=== PATIENT | female | born 1930 | race Caucasian/White ===

== ENCOUNTER 2017-06-01 13:06 | Emergency (ER) | payer BC ==
[2017-06-01 13:27] VITALS: BP 148/75
--- NOTE | 2017-06-01 13:51 | UC ---
Head Injury HPI - HPI Summary HPI Summary: 87 y/o female presents to the urgent care c/o dizziness since yesterday morning. However, she woke up this morning at 0300 am to go to the bathroom she felt dizzy again and fell, hit the back of her head and neck. No LOC. Today, She still with dizziness, mild GUEVARA with mild neck pain. Pt denies numbness, ear pain, visual disturbance, slurred speech, fever SOB, chest pain, abdominal pain , N/V/D, no urinary problems, - History Of Current Complaint Chief Complaint: UCDizziness Stated Complaint: DIZZINESS Time Seen by Provider: 06/01/17 13:21 Hx Obtained From: Patient, Family/Medical Territory Manager - son Hx Last Menstrual Period: menopausal ?: No Onset/Duration: Sudden Onset, Lasting Days - 1 day of dizziness Severity Currently: Moderate Severity Initially: Moderate Pain Intensity: 2 - neck pain Pain Scale Used: 0-10 Numeric Character: Dull Aggravating Factor(s): Nothing Alleviating Factor(s): Nothing Associated Signs And Symptoms: Positive: Negative. Negative: LOC (Time In Secs. /Mins/Hrs), LOC Duration Unknown, Confusion, Memory Loss, Nausea, Vomiting - Risk Factors SDH Risk Factor: Negative - Allergies/Home Medications Allergies/Adverse Reactions: Allergies Allergy/AdvReac Type Severity Reaction Status Date / Time Penicillins Allergy Unknown Verified 06/01/17 17:00 Reaction Details Shellfish Allergy Allergy Anaphylatic Verified 06/01/17 17:00 Shock Home Medications: Home Medications Hypromellose (Ophth) [Genteal Mild] 06/01/17 [History] Senna TAB* [Senokot TAB*] 2 tab PO DAILY 06/01/17 [History Confirmed 06/01/17] PMH/Surg Hx/FS Hx/Imm Hx Previously Healthy: Yes Endocrine History: Dyslipidemia - diet control Other GI/ History: constipation, overactive bladder - Surgical History Surgical History: Yes Surgery Procedure, Year, and Place: Hysterectomy 1970, right hip fx 2015 x2 - Family History Family History: colon cancer, uterine cancer - Social History Occupation: Retired Lives: With Family Alcohol Use: Rare Alcohol Amount: Only on holidays Substance Use Type: None Smoking Status (MU): Former Smoker Type: Cigarettes - Immunization History Most Recent Influenza Vaccination: UNK Most Recent Tetanus Shot: UNK Most Recent Pneumonia Vaccination: Within last couple years Review of Systems Constitutional: Negative Skin: Negative Eyes: Negative ENT: Negative Respiratory: Negative Cardiovascular: Negative Gastrointestinal: Negative Genitourinary: Negative Motor: Negative Neurovascular: Negative Musculoskeletal: Other: - neck pain s/p fall Neurological: Headache - mild s/p fall, Other - dizziness Psychological: Negative Is Patient Immunocompromised?: No All Other Systems Reviewed And Are Negative: Yes Physical Exam Triage Information Reviewed: Yes Appearance: Well-Appearing, No Pain Distress, Well-Nourished, Thin Vital Signs: Initial Vital Signs Temp 98.8 F 06/01/17 13:18 Pulse 67 06/01/17 13:18 Resp 16 06/01/17 13:18 BP 148/75 06/01/17 13:18 Pulse Ox 98 06/01/17 13:18 Vital Signs Reviewed: Yes Eye Exam: Normal Eyes: Positive: Conjunctiva Clear - PERRLA, EOMI, fundi grossly normal ENT: Positive: Normal ENT inspection, Pharynx normal, TMs normal - Pt with hearing piece in both ear, B/L esternal ear canal clear. Neck: Positive: Supple, No Lymphadenopathy, Tenderness @ - Mild tenderness over the RT lateral side on palpation. Decrease ROM of neck due to pain, specially on felxion and extersion. no swelling or chymosis or bruisisng observed Respiratory: Positive: Chest non-tender, Lungs clear, Normal breath sounds, No respiratory distress Cardiovascular Exam: Normal Cardiovascular: Positive: RRR, No Murmur, Pulses Normal, Brisk Capillary Refill Abdomen Description: Positive: Nontender, No Organomegaly, Soft. Negative: CVA Tenderness (R), CVA Tenderness (L) Bowel Sounds: Positive: Present Musculoskeletal Exam: Normal Musculoskeletal: Positive: Strength Intact, ROM Intact, No Edema Neurological Exam: Normal Neurological: Positive: Alert - A&OX4, CNII- XII intact,, Muscle Tone Normal, Other: - romberg test positive. Psychological Exam: Normal Psychological: Positive: Normal Response To Family Skin Exam: Normal Head Injury Course/Dx - Course Course Of Treatment: 87 y/o female presents to the urgent care c/o dizziness since yesterday morning. However, she woke up this morning at 0300 am to go to the bathroom she felt dizzy again and fell; hit the back of her head and neck. No LOC. Today, She still with dizziness, mild GUEVARA and mild neck pain. Pt denies numbness, ear pain, visual disturbance, slurred speech, fever SOB, chest pain, abdominal pain, N/V/D, no urinary problems, Hx obtained. EKG: NSR, HR:72 bpm. PE:WNL except for neck tenderness on the RT lateral side with decrease ROM. Pt' s neck immobilized with a neck collar. Pt needs to go to the ER to r/o any intracranial trauma. I spoke to Luciana FINLEY over the ER in regards to Pt symptoms and she accepted PT to be transfered. Pt's son and Pt was strongly advised to go immeditely to the ER for further evaluation and treatment to r/o any head trauma. They agreed with plan of care and stated they will go to ER by private car. Pt left the clinic on a wheel chair, hemodinamically stable,A& OX3 - Differential Dx/Diagnosis Differential Diagnosis/HQI/PQRI: Cerebral Contusion, Cervical Sprain, Concussion Without LOC, Intracranial Bleed, Skull Fracture Provider Diagnoses: 1- Dizziness f/p fall. 2- Neck pain s/p fall - Physician Notification/Consults Discussed Patient Care With: Harinder Acosta - Dr Acosta agree with Pt plan of care Time Discussed With Above Provider: 00:05 - I presented case to Luciana Rhodes at the [facility] [facility]. Pt was transfer by private car to the ER to r/o intracranial bleed, cerebral contusion. She agreed with Pt trnasfer. Instructed by Provider To: Transfer - Pt will be transfer to the ER. Pt will be taken by her son by car. Discharge - Discharge Plan Condition: Stable Disposition: TRANS HIGHER LVL OF CARE FAC Discharge Disposition Comment: Pt strongly recommeded to go to the ER for further managment. Pt's son agre Patient Education Materials: Head Injury (ED), Dizziness (ED) Referrals: Kartik Cervantes MD [Primary Care Provider] - Additional Instructions: please take your mother immediately to the ER for further evaluation and treatment your dizziness and head injury.
== END 2017-06-01 14:47 | disposition short-term general hospital (02) ==
LOC: UCEAST 13:06
DX: R42 Dizziness and giddiness (principal); M54.2 Cervicalgia; E78.5 Hyperlipidemia, unspecified; K59.00 Constipation, unspecified; N32.81 Overactive bladder; Z78.0 Asymptomatic menopausal state; Z88.0 Allergy status to penicillin; Z91.013 Allergy to seafood; Z90.710 Acquired absence of both cervix and uterus; Z87.891 Personal history of nicotine dependence; Z91.81 History of falling
CPT/HCPCS: 93005; 99211; G0463

== ENCOUNTER 2017-06-01 14:57 | Emergency (ER) | payer BC ==
[2017-06-01] MEDS ORDERED: Meclizine TAB* 12.5 MG PO ONE ×2 (18:04→21:08)
[2017-06-01] MEDS ORDERED: NS 0.9% 1000 ML* 1,000 ML IV SCH (18:15)
--- NOTE | 2017-06-01 18:34 | RAD ---
HISTORY: Fall, dizziness COMPARISONS: November 25, 2006 TECHNIQUE: Multiple contiguous axial CT scans were obtained of the head without intravenous contrast. FINDINGS: HEMORRHAGE/INFARCT: There is no hemorrhage or acute infarct. MASSES/SHIFT: There is no mass or shift. EXTRA-AXIAL SPACES: There are no extra-axial fluid collections. SULCI AND VENTRICLES: The sulci and ventricles are normal in size and position for the patient's stated age. CEREBRUM: There are no focal parenchymal abnormalities. BRAINSTEM: There are no focal parenchymal abnormalities. CEREBELLUM: There are no focal parenchymal abnormalities. VESSELS: The vessels are grossly normal. PARANASAL SINUSES: The paranasal sinuses are clear. ORBITS: The orbits are unremarkable. BONES AND SOFT TISSUE: No bone or soft tissue abnormalities are noted. OTHER: None IMPRESSION: NO ACUTE INTRACRANIAL PATHOLOGY.
--- NOTE | 2017-06-01 18:50 | RAD ---
HISTORY: Fall, dizziness COMPARISONS: None TECHNIQUE: Multiple contiguous axial CT scans were obtained of the cervical spine without intravenous contrast, with coronal and sagittal multiplanar reformations. FINDINGS: BRAIN: The visualized brain is unremarkable CENTRAL CANAL: Evaluation of the central canal is limited on CT technique; however, there is no obvious canalicular mass or epidural hemorrhage. ALIGNMENT: There is grade 1 anterolisthesis of C7 on T1. VERTEBRAL BODIES: There is diffuse osteopenia. There is multilevel anterolateral marginal osteophyte formation. There is no displaced fracture JOINTS: There is osteoarthritis of the uncovertebral, atlantoaxial, and facet joints. MUSCULATURE: Unremarkable INTERVERTEBRAL DISCS: There is diffuse loss of intervertebral disc height. AXIAL IMAGES: On axial images, there is multilevel uncovertebral and facet hypertrophy, without osseous neural foraminal narrowing or central canal stenosis. SOFT TISSUES: The visualized soft tissues of the neck are unremarkable. The prevertebral fat stripe is preserved. OTHER: None. IMPRESSION: 1. OSTEOPENIA. 2. DEGENERATIVE DISC DISEASE AND OSTEOARTHRITIS. 3. NO ACUTE OSSEOUS INJURY TO THE CERVICAL SPINE
[2017-06-01 19:03] LABS: Hematocrit 42 % (35-47); Hemoglobin 14.1 g/dl (12.0-16.0); Mean Corpuscular HGB Conc 34 g/dl (31-36); Mean Corpuscular Hemoglobin 31 pg (27-31); Mean Corpuscular Volume 93 fL (80-97); Mean Platelet Volume 8 um3 (7.4-10.4); Red Blood Count 4.51 10^6/ul (4.0-5.4); Red Cell Distribution Width 14 % (10.5-15)
[2017-06-01 19:05] LABS: Add Diff/Slide Review? Slide Review Added; Comments Flag Yes
[2017-06-01 19:19] LABS: Albumin 4.1 g/dL (3.2-5.2); BUN/Creatinine Ratio 16.7 (8-20); C Reactive Protein 1.53 mg/L (< 5.00); Calcium 9.8 mg/dL (8.6-10.3); EGFR African American 108.9 (>60); EGFR Non-African American 84.7 (>60); Globulin 3.5 g/dL (2-4); Potassium 3.4 mmol/L (3.5-5.0); Total Bilirubin 0.5 mg/dL (0.2-1.0); Total Protein 7.6 g/dL (6.4-8.9)
[2017-06-01 19:20] LABS: Troponin I 0.01 ng/mL (<0.04)
[2017-06-01 19:33] LABS: Eosinophils % 1 % (0-6); Immature Granulocytes 2 % (0-9); Neutrophil % 40 % (38-83); RBC Morphology Normal (Normal); Reactive Lymph % 10 % (0-6)
[2017-06-01 19:38] LABS: Urine Bacteria Absent (Absent); Urine Bilirubin Negative (Negative); Urine Glucose Negative (Negative); Urine Nitrite Negative (Negative)
[2017-06-01 20:04] LABS: TSH (Thyroid Stimulating Horm) 1.16 mcIU/mL (0.34-5.60)
[2017-06-01 20:22] VITALS: BP 175/78
--- NOTE | 2017-06-01 21:13 | ED ---
Margot Mccarthy SooYoung, scribed for Peter Neal MD on 06/01/17 at 1759 . Dizziness - HPI Summary HPI Summary: An 87 y/o F BIBA referred from [facility] presents to ED with c/o dizziness onset 0. She states she got up from bed, was walking to the bathroom, became dizzy and fell. Dizziness described as feeling off-balance. Denies numbness, ear pain , vision changes, slurred speech. Aggravating factors: ambulating, being on her feet. Pt was placed in a neck collar in at [facility] which was uncomfortable and caused mild neck pain, mild GUEVARA. Family member states pt had a dizziness episode yesterday AM, but pt states it wasn't as severe as the episode at 0300. - History Of Current Complaint Chief Complaint: EDHeadInjury Stated Complaint: FALL, COMING FROM [facility] Time Seen by Provider: 06/01/17 17:52 Hx Obtained From: Patient, Family/Paper Handler Onset/Duration: Still Present Severity Initially: Moderate Severity Currently: Moderate Character: Dizzy - off-balance Alleviating Factor(s): Lying Down Associated Signs And Symptoms: Negative: Visual Changes, Slurred Speech, Other: - neg: ear pain, numbness - Allergies/Home Medications Allergies/Adverse Reactions: Allergies Allergy/AdvReac Type Severity Reaction Status Date / Time Penicillins Allergy Unknown Verified 06/01/17 17:00 Reaction Details Shellfish Allergy Allergy Anaphylatic Verified 06/01/17 17:00 Shock PMH/Surg Hx/FS Hx/Imm Hx Previously Healthy: No Endocrine/Hematology History: Denies: Hx Diabetes, Hx Thyroid Disease Cardiovascular History: Reports: Hx Hypercholesterolemia, Other Cardiovascular Problems/Disorders - High Cholesterol Denies: Hx Hypertension Respiratory History: Reports: Hx Pneumonia, Hx Seasonal Allergies, Other Respiratory Problems/Disorders - Seasonal allergies, PNA in the past Denies: Hx Asthma, Hx Chronic Obstructive Pulmonary Disease (COPD) GI History: Reports: Hx Diverticulosis Denies: Hx Ulcer Musculoskeletal History: Reports: Hx Arthritis - Little bit on left index finger , Hx Back Problems - Sees chiropractor, Hx Osteoporosis, Other Musculoskeletal History - Hx of back pain Sensory History: Reports: Hx Contacts or Glasses, Hx Hearing Aid, Hx Hearing Problem Opthamlomology History: Reports: Hx Contacts or Glasses - Surgical History Surgery Procedure, Year, and Place: Hysterectomy 1970, right hip fx 2015 x2 Hx Anesthesia Reactions: No - Immunization History Date of Tetanus Vaccine: unknown Infectious Disease History: No Infectious Disease History: Denies: Hx Clostridium Difficile, Hx Hepatitis, Hx Human Immunodeficiency Virus (HIV), Hx of Known/Suspected MRSA, Hx Shingles, Hx Tuberculosis, Hx Known/ Suspected VRE, Hx Known/Suspected VRSA, History Other Infectious Disease, Traveled Outside the [place] in Last 30 Days - Family History Known Family History: Positive: Other - colon cancer, uterine cancer Family History: colon cancer, uterine cancer - Social History Occupation: Retired Lives: Alone Alcohol Use: Rare Alcohol Amount: Only on holidays Hx Substance Use: No Substance Use Type: Reports: None Hx Tobacco Use: Yes Smoking Status (MU): Former Smoker Type: Cigarettes Review of Systems Negative: Photophobia, Blurred Vision Negative: Ear Ache Positive: Other - pos: neck pain Neurological: Other - pos: dizziness Positive: Headache - mild. Negative: Numbness, Slurred Speech All Other Systems Reviewed And Are Negative: Yes Physical Exam Triage Information Reviewed: Yes Vital Signs On Initial Exam: Initial Vitals Temp Pulse Resp BP Pulse Ox 99.4 F 67 14 160/78 97 06/01/17 15:05 06/01/17 15:05 06/01/17 15:05 06/01/17 15:05 06/01/17 15:05 Vital Signs Reviewed: Yes Appearance: Positive: Well-Appearing, No Pain Distress Skin: Positive: Warm, Skin Color Reflects Adequate Perfusion, Dry Head/Face: Positive: Normal Head/Face Inspection Eyes: Positive: EOMI, LIAT ENT: Positive: Normal ENT inspection Neck: Positive: Supple, Nontender Respiratory/Lung Sounds: Positive: Clear to Auscultation, Breath Sounds Present Cardiovascular: Positive: RRR Musculoskeletal: Positive: Normal, Strength/ROM Intact Neurological: Positive: Normal, Sensory/Motor Intact, Alert, Oriented to Person Place, Time Psychiatric: Positive: Affect/Mood Appropriate - Orient Coma Scale Coma Scale Total: 15 Diagnostics - Vital Signs Vital Signs Temp Pulse Resp BP Pulse Ox 06/01/17 17:30 133/56 06/01/17 17:02 54 73 06/01/17 17:00 169/63 06/01/17 15:05 99.4 F 67 14 160/78 97 - Laboratory Lab Results: Lab Results 06/01/17 06/01/17 06/01/17 Range/Units 18:55 18:55 18:55 WBC (3.5-10.8) 10^3/ul RBC (4.0-5.4) 10^6/ul Hgb (12.0-16.0) g/dl Hct (35-47) % MCV (80-97) fL MCH (27-31) pg MCHC (31-36) g/dl RDW (10.5-15) % Plt Count (150-450) 10^3/ul MPV (7.4-10.4) um3 Immature Gran % (Auto) (0-9) % Neut % (Auto) (38-83) % Lymph % (Auto) (25-47) % [place] % (Auto) (1-9) % Eos % (Auto) (0-6) % Baso % (Auto) (0-2) % Absolute Neuts (auto) (1.5-7.7) 10^3/ul Absolute Lymphs (auto) (1.0-4.8) 10^3/ul Absolute Monos (auto) (0-0.8) 10^3/ul Absolute Eos (auto) (0-0.6) 10^3/ul Absolute Basos (auto) (0-0.2) 10^3/ul Absolute Nucleated RBC 10^3/ul Neutrophils % (38-83) % Band Neutrophils % (0-8) % Lymphocytes % (25-47) % Reactive Lymphs % (0-6) % Monocytes % (0-13) % Eosinophils % (0-6) % Basophils % (0-2) % Nucleated RBC % Normal RBC Morphology (Normal) INR (Anticoag Therapy) 0.94 (0.89-1.11) APTT 32.1 (26.0-36.3) seconds Sodium 134 (133-145) mmol/L Potassium 3.4 L (3.5-5.0) mmol/L Chloride 103 (101-111) mmol/L Carbon Dioxide 27 (22-32) mmol/L Anion Gap 4 (2-11) mmol/L BUN 11 (6-24) mg/dL Creatinine 0.66 (0.51-0.95) mg/dL Est GFR ( Amer) 108.9 (>60) Est GFR (Non-Af Amer) 84.7 (>60) BUN/Creatinine Ratio 16.7 (8-20) Glucose 128 H (70-100) mg/dL Lactic Acid (0.5-2.0) mmol/L Calcium 9.8 (8.6-10.3) mg/dL Magnesium 2.0 (1.9-2.7) mg/dL Total Bilirubin 0.50 (0.2-1.0) mg/dL AST 20 (13-39) U/L ALT 13 (7-52) U/L Alkaline Phosphatase 79 (34-104) U/L Troponin I 0.01 (<0.04) ng/mL C-Reactive Protein 1.53 (< 5.00) mg/L B-Natriuretic Peptide 128 H ( - 100) pg/mL Total Protein 7.6 (6.4-8.9) g/dL Albumin 4.1 (3.2-5.2) g/dL Globulin 3.5 (2-4) g/dL Albumin/Globulin Ratio 1.2 (1-3) TSH 1.16 (0.34-5.60) mcIU/mL Urine Color Urine Appearance Urine pH (5-9) Ur Specific [place] (1.010-1.030) Urine Protein (Negative) Urine Ketones (Negative) Urine Blood (Negative) Urine Nitrate (Negative) Urine Bilirubin (Negative) Urine Urobilinogen (Negative) Ur Leukocyte Esterase (Negative) Urine WBC (Auto) (Absent) Urine RBC (Auto) (Absent) Ur Squamous Epith Cells (Absent) Urine Bacteria (Absent) Urine Glucose (Negative) 06/01/17 06/01/17 06/01/17 Range/Units 18:55 18:55 19:15 WBC 6.0 (3.5-10.8) 10^3/ul RBC 4.51 (4.0-5.4) 10^6/ul Hgb 14.1 (12.0-16.0) g/dl Hct 42 (35-47) % MCV 93 (80-97) fL MCH 31 (27-31) pg MCHC 34 (31-36) g/dl RDW 14 (10.5-15) % Plt Count 181 (150-450) 10^3/ul MPV 8 (7.4-10.4) um3 Immature Gran % (Auto) 2 (0-9) % Neut % (Auto) 43.8 (38-83) % Lymph % (Auto) 45.1 (25-47) % [place] % (Auto) 7.8 (1-9) % Eos % (Auto) 2.3 (0-6) % Baso % (Auto) 1.0 (0-2) % Absolute Neuts (auto) 2.6 (1.5-7.7) 10^3/ul Absolute Lymphs (auto) 2.7 (1.0-4.8) 10^3/ul Absolute Monos (auto) 0.5 (0-0.8) 10^3/ul Absolute Eos (auto) 0.1 (0-0.6) 10^3/ul Absolute Basos (auto) 0.1 (0-0.2) 10^3/ul Absolute Nucleated RBC 0 10^3/ul Neutrophils % 40 (38-83) % Band Neutrophils % 2 (0-8) % Lymphocytes % 41 (25-47) % Reactive Lymphs % 10 H (0-6) % Monocytes % 5 (0-13) % Eosinophils % 1 (0-6) % Basophils % 1 (0-2) % Nucleated RBC % 0.1 Normal RBC Morphology Normal (Normal) INR (Anticoag Therapy) (0.89-1.11) APTT (26.0-36.3) seconds Sodium (133-145) mmol/L Potassium (3.5-5.0) mmol/L Chloride (101-111) mmol/L Carbon Dioxide (22-32) mmol/L Anion Gap (2-11) mmol/L BUN (6-24) mg/dL Creatinine (0.51-0.95) mg/dL Est GFR ( Amer) (>60) Est GFR (Non-Af Amer) (>60) BUN/Creatinine Ratio (8-20) Glucose (70-100) mg/dL Lactic Acid 1.0 (0.5-2.0) mmol/L Calcium (8.6-10.3) mg/dL Magnesium (1.9-2.7) mg/dL Total Bilirubin (0.2-1.0) mg/dL AST (13-39) U/L ALT (7-52) U/L Alkaline Phosphatase (34-104) U/L Troponin I (<0.04) ng/mL C-Reactive Protein (< 5.00) mg/L B-Natriuretic Peptide ( - 100) pg/mL Total Protein (6.4-8.9) g/dL Albumin (3.2-5.2) g/dL Globulin (2-4) g/dL Albumin/Globulin Ratio (1-3) TSH (0.34-5.60) mcIU/mL Urine Color Yellow Urine Appearance Clear Urine pH 7.0 (5-9) Ur Specific [place] 1.004 L (1.010-1.030) Urine Protein Negative (Negative) Urine Ketones Negative (Negative) Urine Blood Negative (Negative) Urine Nitrate Negative (Negative) Urine Bilirubin Negative (Negative) Urine Urobilinogen Negative (Negative) Ur Leukocyte Esterase 1+ H (Negative) Urine WBC (Auto) 2+(11-20/hpf) H (Absent) Urine RBC (Auto) Absent (Absent) Ur Squamous Epith Cells Present H (Absent) Urine Bacteria Absent (Absent) Urine Glucose Negative (Negative) Result Diagrams: 06/01/17 18:55 06/01/17 18:55 Lab Statement: Any lab studies that have been ordered have been reviewed, and results considered in the medical decision making process. - CT BRAIN CT CT Interpretation: No Acute Changes - IMPRESSION: No acute intracranial pathology. ED physician has reviewed this radiology report and agrees. CT Interpretation Completed By: Radiologist C-SPINE CT Interpretation: No Acute Changes - IMPRESSION: 1. OSTEOPENIA. 2. DEGENERATIVE DISC DISEASE AND OSTEOARTHRITIS. 3. NO ACUTE OSSEOUS INJURY TO THE CERVICAL SPINE. ED physician has reviewed this radiology report and agrees. CT Interpretation Completed By: Radiologist - EKG 1832 Cardiac Rate: NL - 60bpm EKG Rhythm: Sinus Rhythm ST Segment: Normal Ectopy: None Re-Evaluation - Re-Evaluation 1 Re-Evaluation Time: 21:02 Change: Improved Comment: Discussing results with pt. Dizzy Course/Dx - Course Course Of Treatment: An 87 y/o F BIBA referred from [facility] presents to ED with c/o dizziness onset 0300. She states she got up from bed, was walking to the bathroom, became dizzy and fell. Dizziness described as feeling off-balance. Denies numbness, ear pain, vision changes, slurred speech. Aggravating factors: ambulating, being on her feet. Pt was placed in a neck collar in at [facility] which was uncomfortable and caused mild neck pain, mild GUEVARA. Family member states pt had a dizziness episode yesterday AM, but pt states it wasn't as severe as the episode at 0300. Medications reviewed. BP noted and advised to follow up with PCP. Pt given Antivert, fluids in ED. IMPROVED IN ED AFTER PO MECLIZINE. AMBULATED IN ED. DISCUSSED RESULTS WITH PATIENT/SON. PATIENT WISHES TO GO HOME. NO FOCAL NEUROLOGIC DEFICTS. - Diagnoses Provider Diagnoses: Dizziness Discharge - Discharge Plan Condition: Stable Disposition: HOME Prescriptions: Meclizine HCl [Meclizine 25] 25 mg PO Q6HR PRN #15 tab PRN Reason: Dizziness Patient Education Materials: Dizziness (ED) Referrals: Kartik Cervantes MD [Primary Care Provider] - Additional Instructions: FOLLOW UP WITH YOUR DOCTOR. TAKE THE MECLIZINE 25MG EVERY 6 HOURS NEEDED. RETURN TO THE EMERGENCY DEPARTMENT FOR ANY WORSENING OF YOUR CONDITION; THE DIZZINESS DOES NOT IMPROVE OR WORSENS, WEAKNESS, NUMBNESS, DIFFICULTY WITH SPEECH OR VISION, SIGNS OF AN URINARY TRACT INFECTION OR QUESTIONS OR CONCERNS. The documentation as recorded by the Margot flores SooYoung accurately reflects the service I personally performed and the decisions made by me, Peter Neal MD.
== END 2017-06-01 21:31 | disposition home or self-care (01) ==
LOC: ED 14:57
DX: R42 Dizziness and giddiness (principal); M50.320 Other cervical disc degeneration, mid-cervical region, unspecified level; M85.80 Other specified disorders of bone density and structure, unspecified site; Z87.891 Personal history of nicotine dependence
CPT/HCPCS: 36415; 70450; 72125; 80053; 81003; 81015; 83605; 83735; 83880; 84443; 84484; 85025; 85610; 85730; 86140; 87086; 93005; 99283; A9270-GY

== ENCOUNTER 2017-10-22 07:10 | Day surgery (SDC) | payer BC ==
[~2017-10-22 07:10] MED LIST: Acetaminophen TAB* 325 MG PO PRN; Buffered Lidocaine 0.9% SYRIN* 5 ML/SYR SYRINGE INTRADERM ONE
[2017-10-22] MEDS ORDERED: Neomycin/Polymy/Dex OPTH.SUSP* MAXITROL 0.1% 5 ML ONE (07:44)
[2017-10-22] MEDS ORDERED: Phenylephrine 2.5% OPTH.SOL* 2 ML BTL ONE (07:44)
[2017-10-22] MEDS ORDERED: Ketorolac 0.5% OPHTH (NF) 0.5 % 5 ML BTL ONE (07:44)
[2017-10-22] MEDS ORDERED: Proparacaine 0.5% OPHTH.SOL* 15 ML BTL ONE (07:44)
[2017-10-22] MEDS ORDERED: Lidocaine 2% EPI 1:200000 MPF* 20 ML VIAL ONE (07:44)
[2017-10-22] MEDS ORDERED: Lidocaine 1% MPF* 2 ML VIAL ONE (07:44)
[2017-10-22] MEDS ORDERED: Cyclopentolate 1% OPTH.SOL* 2 ML BTL ONE (07:44)
[2017-10-22] MEDS ORDERED: acetaZOLAMIDE TAB* 250 MG ONE (07:44)
[2017-10-22] MEDS ORDERED: Povidone Iodine 5% OPTH* 30 ML BTL ONE (07:44)
[2017-10-22] MEDS ORDERED: Midazolam* 1 MG/ML 2 ML VIAL (2 MG) ONE (08:46)
[2017-10-22 09:58] VITALS: BP 144/72
--- NOTE | 2017-10-22 10:32 | OP ---
DATE OF OPERATION: 10/22/2017. DATE OF : 1930. SURGEON: Sly Isaacs M.D. PREOPERATIVE DIAGNOSIS: Cataract left eye. POSTOPERATIVE DIAGNOSIS: Cataract left eye. OPERATIVE PROCEDURE: Extracapsular cataract extraction with intraocular lens implant left eye. PROCEDURE: The patient was brought to the operating room after being given 1/2% Alcaine with epineph rine drops in the preoperative area. The eye was prepped and draped in the usual sterile fashion. S terile drape and eyelid speculum were placed. Again, topical 1/2% Alcaine with epinephrine was given . A paracentesis incision was made at the 3 o'clock position with the No.75 blade. Clear cornea inc ision 2.2 x 2.2-mm was created at the 6 o'clock position starting at the anterior limbus using the 2. 2-mm keratome. The anterior chamber was irrigated with 0.4 mL of 1% non-preservative intracameral li docaine and filled with DisCoVisc. A capsulorrhexis was completed using the cystotome and the Utrata forceps. Hydrodissection was performed with balanced salt solution. The lens nucleus was removed wi th the Phacoemulsification handpiece without incident. Cortex was removed with the irrigation-aspira tion handpiece. The capsular bag was re-inflated using DisCoVisc and an [id number] 20.5 implant was inse rted with the shooter. The irrigation-aspiration handpiece was used to remove all residual DisCoVisc . The eye was refilled with balanced salt solution and the wound checked and found to be watertight. Topical Maxitrol drops were given. [id number]/[facility] #: [id number]
== END 2017-10-22 09:50 | disposition home or self-care (01) ==
LOC: OREAST 07:10
PROVIDERS: ATTEND Specialist
DX: H25.12 Age-related nuclear cataract, left eye (principal); H43.813 Vitreous degeneration, bilateral
CPT/HCPCS: A9270-GY; J2250; V2632

== ENCOUNTER 2017-10-29 06:31 | Day surgery (SDC) | payer BC ==
[2017-10-29] MEDS ORDERED: Midazolam* 1 MG/ML 2 ML VIAL (2 MG) ONE (07:26)
[2017-10-29 08:28] VITALS: BP 142/59
[2017-10-29] MEDS ORDERED: Ketorolac 0.5% OPHTH (NF) 0.5 % 5 ML BTL ONE (12:36)
[2017-10-29] MEDS ORDERED: Phenylephrine 2.5% OPTH.SOL* 2 ML BTL ONE (12:36)
[2017-10-29] MEDS ORDERED: Povidone Iodine 5% OPTH* 30 ML BTL ONE (12:36)
[2017-10-29] MEDS ORDERED: Lidocaine 1% MPF* 2 ML VIAL ONE (12:36)
[2017-10-29] MEDS ORDERED: acetaZOLAMIDE TAB* 250 MG ONE (12:36)
[2017-10-29] MEDS ORDERED: Cyclopentolate 1% OPTH.SOL* 2 ML BTL ONE (12:36)
[2017-10-29] MEDS ORDERED: Neomycin/Polymy/Dex OPTH.SUSP* MAXITROL 0.1% 5 ML ONE (12:36)
[2017-10-29] MEDS ORDERED: Lidocaine 2% EPI 1:200000 MPF* 20 ML VIAL ONE (12:36)
[2017-10-29] MEDS ORDERED: Proparacaine 0.5% OPHTH.SOL* 15 ML BTL ONE (12:37)
--- NOTE | 2017-10-29 17:24 | OP ---
DATE OF OPERATION: 10/29/17 - [facility] DATE OF : [birth year] SURGEON: Sly Isaacs M.D. PREOPERATIVE DIAGNOSIS: Cataract, right eye. POSTOPERATIVE DIAGNOSIS: Cataract, right eye. OPERATIVE PROCEDURE: Extracapsular cataract extraction with intraocular lens implant right eye. DESCRIPTION OF PROCEDURE: The patient was brought to the operating room after being given 1/2% Alcaine with epinephrine drops in the preoperative area. The eye was prepped and draped in the usual sterile fashion. Sterile drape and eyelid speculum were placed. Again, topical 1/2% Alcaine with epinephrine was given. A paracentesis incision was made at the 9 o'clock position with the No.75 blade. Clear cornea incision 2.2 x 2.2-mm was created at the 12 o'clock position starting at the anterior limbus using the 2.2-mm keratome. The anterior chamber was irrigated with 0.4 mL of 1% non-preservative intracameral lidocaine and filled with DisCoVisc. A capsulorrhexis was completed using the cystotome and the Utrata forceps. Hydrodissection was performed with balanced salt solution. The lens nucleus was removed with the Phacoemulsification handpiece without incident. Cortex was removed with the irrigation-aspiration handpiece. The capsular bag was re-inflated using DisCoVisc and an [id number] 16 implant was inserted with the shooter. The irrigation-aspiration handpiece was used to remove all residual DisCoVisc. The eye was refilled with balanced salt solution and the wound checked and found to be watertight. Topical Maxitrol drops were given. [id number]/[facility] #: [id number] [facility]
== END 2017-10-29 08:38 | disposition home or self-care (01) ==
LOC: OREAST 06:31
PROVIDERS: ATTEND Specialist
DX: H25.11 Age-related nuclear cataract, right eye (principal); H43.813 Vitreous degeneration, bilateral; E78.00 Pure hypercholesterolemia, unspecified; K58.9 Irritable bowel syndrome, unspecified; M19.90 Unspecified osteoarthritis, unspecified site
CPT/HCPCS: A9270-GY; J2250; V2632

== ENCOUNTER 2018-03-27 12:57 | Emergency (ER) | payer BC ==
--- NOTE | 2018-03-27 14:13 | ED ---
Lower Extremity - HPI Summary HPI Summary: This is sandra Ledesma documenting for attending Rober Kam MD. This patient is a 87 year old F presenting [place] [facility] accompanied by a woman with a chief complaint of right leg pain with errythema since yesterday. Pt had a skin biopsy yesterday, which found BCC. Pt went back in today for excessive bleeding and edema and they told her to come to the ED for an US. The patient rates the pain 6/10 in severity. Patient reports elevated BP, back pain, right knee pain and ecchymosis, and right calf pain. The bleeding is controlled currently. Pt has taken Aleve, Aspirin, Tylenol, and an unspecified opiate for her back pain, but none of them have alleviated it. Pts doctor thinks her back pain may be associated with nerve pain. PMHX prosthetic hip right side. - History of Current Complaint Chief Complaint: EDExtremityLower Stated Complaint: POS BLOOD CLOT Time Seen by Provider: 03/27/18 13:55 Hx Obtained From: Patient Hx Last Menstrual Period: menopausal Mechanism Of Injury: Other - skin biopsy Onset of Pain: Immediate Onset/Duration: Still Present Severity Initially: Moderate Severity Currently: Moderate Pain Intensity: 6 Pain Scale Used: 0-10 Numeric Timing: Constant Location: Is Discrete @ - biopsy location Associated Signs And Symptoms: Positive: Swelling, Redness, Knee Pain - Allergies/Home Medications Allergies/Adverse Reactions: Allergies Allergy/AdvReac Type Severity Reaction Status Date / Time latex Allergy mouth edema Verified 10/29/17 06:44 Penicillins Allergy Unknown Verified 10/29/17 06:44 Reaction Details shellfish derived Allergy anaphylactic Verified 10/29/17 06:44 shock PMH/Surg Hx/FS Hx/Imm Hx Endocrine/Hematology History: Reports: Hx Diabetes - pre diabetic, ok now after diet changes Denies: Hx Sickle Cell Disease, Hx Thyroid Disease Cardiovascular History: Reports: Hx Hypercholesterolemia, Other Cardiovascular Problems/Disorders - High Cholesterol Denies: Hx Hypertension Respiratory History: Reports: Hx Pneumonia, Hx Seasonal Allergies, Other Respiratory Problems/Disorders - Seasonal allergies, PNA in the past Denies: Hx Asthma, Hx Chronic Obstructive Pulmonary Disease (COPD) GI History: Reports: Hx Diverticulosis Denies: Hx Ulcer History: Denies: Other Problems/Disorders Musculoskeletal History: Reports: Hx Arthritis - Little bit on left index finger , Hx Back Problems - Sees chiropractor, Hx Osteoporosis, Other Musculoskeletal History - Hx of back pain Sensory History: Reports: Hx Cataracts - aileen, Hx Contacts or Glasses, Hx Hearing Aid, Hx Hearing Problem Opthamlomology History: Reports: Hx Cataracts - aileen, Hx Contacts or Glasses Neurological History: Denies: Other Neuro Impairments/Disorders - Surgical History Surgery Procedure, Year, and Place: Hysterectomy 1970,. right hip fx 2015 x2 Hx Anesthesia Reactions: No - Immunization History Date of Tetanus Vaccine: unknown Infectious Disease History: No Infectious Disease History: Denies: Hx Clostridium Difficile, Hx Hepatitis, Hx Human Immunodeficiency Virus (HIV), Hx of Known/Suspected MRSA, Hx Shingles, Hx Tuberculosis, Hx Known/ Suspected VRE, Hx Known/Suspected VRSA, History Other Infectious Disease, Traveled Outside the [place] in Last 30 Days - Family History Known Family History: Positive: Other - colon cancer, uterine cancer Family History: colon cancer, uterine cancer - Social History Alcohol Use: Rare Alcohol Amount: Only on holidays Hx Substance Use: No Substance Use Type: Reports: None Hx Tobacco Use: Yes Smoking Status (MU): Former Smoker Type: Cigarettes Review of Systems Positive: Other - back pain, right leg pain Positive: Bruising - right knee All Other Systems Reviewed And Are Negative: Yes Physical Exam - Summary Physical Exam Summary: Appearance: Well-appearing, Well-nourished, lying in bed comfortable Skin: Warm, dry, no obvious rash. No edema in the right leg or foot. Eyes: sclera anicteric, no conjunctival pallor ENT: mucous membranes moist Neck: deferred Respiratory: No signs of respiratory distress Cardiovascular: Appears well perfused, pulses are nml Abdomen: deferred Musculoskeletal: Moving all 4 extremities without obvious discomfort. Dressing overlaying biopsy site on the right leg, total area with erythema site and dressing covers 3x5 cm. The erythematous region is slightly warm. There is calf tenderness diffusely Neurological: Awake and alert, mentation is normal, speech is fluent and appropriate Psychiatric: affect is normal, does not appear anxious or depressed Triage Information Reviewed: Yes Vital Signs On Initial Exam: Initial Vitals Temp Pulse Resp BP Pulse Ox 98.2 F 63 18 173/83 100 03/27/18 13:10 03/27/18 13:10 03/27/18 13:10 03/27/18 13:10 03/27/18 13:10 Vital Signs Reviewed: Yes Diagnostics - Vital Signs Vital Signs Temp Pulse Resp BP Pulse Ox 03/27/18 13:10 98.2 F 63 18 173/83 100 - Laboratory Lab Statement: Any lab studies that have been ordered have been reviewed, and results considered in the medical decision making process. - Radiology [place] Doppler Radiology Interpretation Completed By: Radiologist - NO RIGHT LOWER EXTREMITY DEEP VEIN THROMBOSIS ED Physician reviewed this report Lower Extremity Course/Dx - Diagnoses Provider Diagnoses: Leg pain Discharge - Sign-Out/Discharge Documenting (check all that apply): Patient Departure - Discharge Plan Condition: Good Disposition: HOME Patient Education Materials: Leg Pain (ED) Referrals: Geovanni Cortés PA [Physician Cytology Supervisor] - 1 Day Kartik Cervantes MD [Primary Care Provider] - - Billing Disposition and Condition Condition: GOOD Disposition: Home
--- NOTE | 2018-03-27 14:46 | RAD ---
HISTORY: pain,swelling,r/o dvt COMPARISONS: None relevant TECHNIQUE: Multiple transverse and longitudinal ultrasound images were obtained of the right lower extremity from the level of the common femoral vein inferiorly through to the infrapopliteal veins using grayscale, color Doppler, and spectral Doppler imaging with and without compression and with augmentation. Comparison images were obtained of the contralateral common femoral vein. FINDINGS: VEINS: The venous system of the right lower extremity is compressible throughout its course, with normal flow on color Doppler imaging and normal response to augmentation on spectral Doppler imaging. SOFT TISSUES: Unremarkable. OTHER FINDINGS: None. IMPRESSION: NO RIGHT LOWER EXTREMITY DEEP VEIN THROMBOSIS
[2018-03-27 15:35] VITALS: BP 156/72
[2018-03-27] MEDS ORDERED: Acetaminophen TAB* 325 MG PO ONE (15:49)
== END 2018-03-27 16:07 | disposition home or self-care (01) ==
LOC: ED 12:57
DX: M79.604 Pain in right leg (principal); Z96.641 Presence of right artificial hip joint; Z88.0 Allergy status to penicillin; Z87.891 Personal history of nicotine dependence
CPT/HCPCS: 99283; A9270-GY

== ENCOUNTER → 2018-07-21 09:53 | Day surgery (SDC) | payer BC ==
[~2018-07-21 09:53] MED LIST changes: +Acetaminophen IV 1GM/100ML * 10 MG/ML VIAL IVPB ONE; +Acetaminophen IV 1GM/100ML * 100 ML ONE; -Acetaminophen TAB* 325 MG PO PRN; +Bupivacaine 0.25% SDV PF* 10 ML VIAL INJ ONE; +Clindamycin 900 MG/D5W BAG(*) 900 MG/50 ML BAG IVPB ONE; +Dexamethasone TAB* 4 MG ONE; +Dexamethasone TAB* 6 MG PO ONE; +Famotidine IV* 10 MG/ML 2 ML (20 mg) IV ONE; +Famotidine IV* 10 MG/ML 2 ML (20 mg) ONE; +KETAMINE HCL* 50 MG/ML 10 ML VIAL ONE; +Lidocain 1% EPI 1:100,000 * 30 ML MDV ONE; +Midazolam* 1 MG/ML 2 ML VIAL (2 MG) ONE; +Morphine PCA ADULT* 5 MG/ML 30 ML ONE; +Naloxone* 0.4 MG/ML 1 ML VIAL IV PRN; +Ondansetron ODT TAB* 4 MG ONE; +Ondansetron TAB* 4 MG PO ONE; +PROCHLORPERAZINE INJ 5 MG/ML 2 ML VIAL IV PRN; +Propofol* 500 MG/50 ML BTL ONE; +fentaNYL* 50 MCG/ML 2 ML VIAL (100 MCG VIAL) ONE
[2018-07-21 16:09] VITALS: BP 150/82
== END | disposition home or self-care (01) ==
LOC: OR 09:53
PROVIDERS: ATTEND Plastic Surgery
DX: C44.722 Squamous cell carcinoma of skin of right lower limb, including hip (principal); E78.5 Hyperlipidemia, unspecified; K58.9 Irritable bowel syndrome, unspecified; M19.90 Unspecified osteoarthritis, unspecified site; Z85.828 Personal history of other malignant neoplasm of skin
CPT/HCPCS: 88305; 88331; 88332; A9270-GY; J2250; J2270; J2704; J3010; J3490; J8540